=== PATIENT | female | born 1940 | race Caucasian/White ===

== ENCOUNTER → 2018-07-24 15:37 | Outpatient (CLI) | payer MEDICARE, SELFPAY ==
--- NOTE | 2018-07-24 15:44 | RAD_ITS ---
STUDY: X-RAY CHEST REASON FOR EXAM: Female, 77 years old. Pneumonia. TECHNIQUE: PA and lateral views of the chest. COMPARISON: None. FINDINGS: Narrowed AP diameter of the lower chest. The lungs are deeply inflated. There are coarsened bibasilar interstitial densities as well as ill-defined, vaguely nodular regions. There is minor pleural parenchymal scarring in the superior sulci. Normal size heart. Normal mediastinum and [place]. Normal visualized pulmonary arteries. Normal visualized aortic arch and descending thoracic aorta. Normal visualized thoracic spine. Normal visualized ribs, clavicles, and shoulders. There is no demonstrated abnormality of the visualized soft tissue structures of the upper abdomen. RAD/Chest PA and Lateral IMPRESSION: Coarsened bibasilar interstitial densities suggesting inflammatory change, either acute or chronic. There are also vaguely nodular densities in the bilateral lung bases, likely a component of this inflammatory change. Comparison with any previous outside studies would be useful. Particularly if none are available, follow-up is needed to document clearing or stability. Electronically Signed: Nilo Gomez MD at 15:56 EST , Service support ,
[2018-07-24 17:57] LABS: Erythrocyte Sedimentation Rate 18 mm/hr (0-30)
[2018-07-24 18:07] LABS: CRP, High Sensitivity Cardiac 9.34 mg/L
== END ==
PROVIDERS: Family Provider Family Medicine; PCP Family Medicine; Referring Provider Internal Medicine Pulmonary Disease; Visit Provider Internal Medicine Pulmonary Disease
DX: J18.9 Pneumonia, unspecified organism (principal)
CPT/HCPCS: 36415; 71046; 85652; 86141

== ENCOUNTER 2020-12-23 10:28 | Day surgery (SDC) | payer MEDICARE, SELFPAY ==
[2020-12-23] VITALS (7 sets, daily range): BP systolic 105–154; BP diastolic 51–98; PULSE 74–86; RESP 16–18; TEMP 36.4–37.1; O2SAT 94–100; BMI 15.7
--- NOTE | 2020-12-23 | FLU_PTH ---
PATIENT: MARIBEL TORRE LOC: [facility] U#:[id number] AGE/SX: 80/F ROOM: RE12/23/[address]: Dr. Louie Gaytan MD : 1940 BED: DIS: 12/23/2020 SPEC #: [id number] RECD: 12/23/20 13:16 STATUS: HENRI DURGA #: [id number] ABDI: 12/23/20 00:[address]: Louie Gaytan V DEPT: CYTOLOGY RECD BY: Mychal Tate ENTERED: 12/24/20 08:39 SP TYPE: Fluid OTHR DR: Dr. Louie Tejeda MD Tissues: A - Bronchus of left lower lobe B - Bronchus of right lower lobe Procedures: Special Stain Group II Special Stain Group I Surgery Specimen Level IV AFB Stain (control) Cytospin Fluid HEADER OPERATION: Bronchoscopy (MAC) PRE-OP DIAGNOSIS: Lung nodule TISSUE SUBMITTED: A ? SEBASTIEN fluid for cytology, B ? RLL fluid for cytology DIAGNOSIS CYTOLOGY A. SEBASTIEN fluid for cytology (cytospin and cell block): Negative for malignant cells. Marked acute inflammation. Special stain for acid fast bacilli is negative for organisms; matched control is appropriate. See comment. B. RLL fluid for cytology (cytospin and cell block): Negative for malignant cells. Marked acute inflammation. Special stain for acid fast bacilli is negative for organisms; matched control is appropriate. See comment. FREDI:alyse 12/25/2020 COMMENT A. Numerous organisms consistent with bacteria are also noted. Correlation with clinical, radiologic findings and appropriate follow up are necessary. CYTOLOGY STUDY Slides are reviewed. CYTOLOGY GROSS A - Received is 15 ml of white cloudy fluid labeled with the patient's name and and designated per the requisition as SEBASTIEN. Submitted for cytology preparation including cell block. B - Received is 55 ml of white cloudy fluid labeled with the patient's name and and designated per the requisition as RLL. Submitted for cytology preparation including cell block. / alyse 12/24/2020 TC:2 CPT: 52023 x2, 20088 x2, 10846 x2
[2020-12-23] MEDS: Phenylephrine 0.25% 15 ML NASAL.SRY 15 SPRAY NASAL (12:45)
[2020-12-23] MEDS: Lidocaine 2% Jelly 1 APPLIC Tube (12:45)
[2020-12-23] MEDS: Lidocaine 2% (5ml sdv) 5 ML VIAL.MPF ×2 (12:46)
--- NOTE | 2020-12-23 13:00 | OP.BRONCH_ITS ---
Patient Name: Kerwin Butcher Procedure Date: 12/23/2020 12:11 PM Date of : 1940 Age: 80 Procedure: Bronchoscopy Indications: Bilateral infiltrate, Interstitial lung disease Providers: Louie Gaytan MD Medicines: Lidocaine 2% applied to cords 10 mL, Sedation Required Anesthesia Staff Assistance Complications: No immediate complications Procedure: Pre-Anesthesia Assessment: - A History and Physical has been performed. The patient's medications, allergies and sensitivities have been reviewed. - The risks and benefits of the procedure and the sedation options and risks were discussed with the patient. All questions were answered and informed consent was obtained. - Immediately prior to administration of medications, the patient was re-assessed for adequacy to receive sedatives. After I obtained informed consent, the scope was passed under direct vision. Throughout the procedure, the patient's blood pressure, pulse, and oxygen saturations were monitored continuously. The bronchoscope was introduced through the left nostril and advanced to the tracheobronchial tree of both lungs. The patient tolerated the procedure well. Findings: Bilateral Lung Abnormalities: An area of chronically inflamed mucosa was found throughout the tracheobronchial tree. BAL was performed in the RML lateral segment (B4) and in the SEBASTIEN anterior segment (B3) of the lung and sent for cell count and differential, aerobic culture, anaerobic culture, AFB analysis & culture and fungal analysis. 180 mL of fluid were instilled. 90 mL were returned. The return was cloudy. Mucous plugs were present in the return fluid. Multiple specimens were obtained, and each sent for analysis. Impression: - Bilateral infiltrate - Interstitial lung disease - Chronic mucosal inflammation was visualized throughout the tracheobronchial tree. - Bronchoalveolar lavage was performed. - Exudate was found throughout the tracheobronchial tree. Recommendation: - Await BAL results. Procedure Code(s): --- Professional --- 28128, 50, Bronchoscopy, rigid or flexible, including fluoroscopic guidance, when performed; with bronchial alveolar lavage Diagnosis Code(s): --- Professional --- R91.8, Other nonspecific abnormal finding of lung field J42, Unspecified chronic bronchitis R09.89, Other specified symptoms and signs involving the circulatory and respiratory systems J84.9, Interstitial pulmonary disease, unspecified CPT copyright 2017 [employer]. All rights reserved. The codes documented in this report are preliminary and upon label coder review may be revised to meet current compliance requirements. MD Louie Corral MD 12/23/2020 12:59:44 PM This report has been signed electronically. Number of Addenda: 0 Note Initiated On: 12/23/2020 12:11 PM
[2020-12-23] MEDS: Lactated Ringers 1,000 ML 100 ML IV ×2 (13:04→13:05)
[2020-12-23 13:21] LABS: Cytology, Body Fluid / CSF SEE PATHOLOGY REPORT
[2020-12-23 13:23] LABS: Cytology, Body Fluid / CSF SEE PATHOLOGY REPORT
[2020-12-23 14:15] LABS: Red Cell Count/Body Fluid 55 /mm3; Source- Body Fluid BRONCHIAL LAVAGE; White Blood Count/Body Fluid 1380 /mm3
[2020-12-23 14:16] LABS: Appearance/Body Fluid TURBID; Color/Body Fluid COLORLESS
[2020-12-23 14:20] LABS: Red Cell Count/Body Fluid 65 /mm3; White Blood Count/Body Fluid 1835 /mm3
[2020-12-23 14:21] LABS: Appearance/Body Fluid TURBID; Color/Body Fluid COLORLESS; Source- Body Fluid BRONCHIAL LAVAGE
[2020-12-23 14:39] LABS: Macrophages 1 %; Neutrophil (Segs) 99 %
[2020-12-23 14:40] LABS: Lymphocytes 1 %; Neutrophil (Segs) 96 %; Other Cell Type/BF 3 %
[2020-12-23 14:41] LABS: Body Fluid QC Type(s) BF1,BF2
[2020-12-24 12:51] LABS: Pathologist Comment/Body Fluid Reviewed
== END 2020-12-23 14:32 ==
LOC: EN 10:31 → AC 10:32
PROVIDERS: PCP Family Medicine; Referring Provider Family Medicine; Visit Provider Internal Medicine Pulmonary Disease
PROC: 0BJ08ZZ Inspection of Tracheobronchial Tree, Via Natural or Artificial Opening Endoscopic (ICD-10-PCS; CPT 31622; principal; 2020-12-23 11:45)
DX: R91.8 Other nonspecific abnormal finding of lung field (principal); J84.9 Interstitial pulmonary disease, unspecified; T17.990A Other foreign object in respiratory tract, part unspecified in causing asphyxiation, initial encounter; X58.XXXA Exposure to other specified factors, initial encounter; Y93.9 Activity, unspecified; Y92.9 Unspecified place or not applicable; Y99.9 Unspecified external cause status; J42 Unspecified chronic bronchitis; I10 Essential (primary) hypertension; C80.1 Malignant (primary) neoplasm, unspecified; E03.9 Hypothyroidism, unspecified; G20 Parkinson's disease; Z78.0 Asymptomatic menopausal state; Z79.82 Long term (current) use of aspirin; Z79.890 Hormone replacement therapy
CPT/HCPCS: 31624; 87015; 87070; 87077; 87116; 87186; 87205; 87206; 88108; 88305; 88312; 88313; 89050; J7120; J2405